=== PATIENT | male | born 1990 | race Caucasian/White ===

== ENCOUNTER 2016-09-27 | Emergency (ER) | payer MEDICARE, OTHER | END 2016-09-27 04:55 | disposition home or self-care (01) | LOC: ER1 | DX: M25.561 Pain in right knee (principal); F17.210 Nicotine dependence, cigarettes, uncomplicated; Z88.2 Allergy status to sulfonamides; Z88.8 Allergy status to other drugs, medicaments and biological substances | CPT/HCPCS: 73564; 99283 ==

== ENCOUNTER 2017-03-25 04:12 | Emergency (ER) | payer MEDICARE, OTHER | END 2017-03-25 05:40 | disposition home or self-care (01) | LOC: ER1 04:12 | DX: K08.89 Other specified disorders of teeth and supporting structures (principal); Z88.2 Allergy status to sulfonamides; Z88.5 Allergy status to narcotic agent; Z88.8 Allergy status to other drugs, medicaments and biological substances | CPT/HCPCS: 96372; 99282; J1885 ==

== ENCOUNTER 2020-08-09 16:53 | Emergency (ER) | payer MEDICARE, OTHER | END 2020-08-09 18:38 | disposition left against medical advice (07) | LOC: ER1 16:53 | DX: R10.9 Unspecified abdominal pain (principal); M54.9 Dorsalgia, unspecified; Z53.21 Procedure and treatment not carried out due to patient leaving prior to being seen by health care provider ==

== ENCOUNTER 2022-01-14 03:10 | Inpatient (IN) | payer MEDICARE, OTHER ==
[~2022-01-14] VITALS: Ht 160 cm; Wt 77.1 kg
[2022-01-14 03:51] LABS: RED BLOOD COUNT 5.34 M/UL (4.20-5.50); WHITE BLOOD COUNT 9.5 K/UL (4.5-11.0)
[2022-01-14 04:15] LABS: BUN/CREATININE RATIO 12 (0-10)
[2022-01-15 06:22] LABS: HEMOGLOBIN 17.3 gm/dl (14.0-17.5); RED BLOOD COUNT 5.43 M/UL (4.20-5.50)
[2022-01-15 06:39] LABS: BUN/CREATININE RATIO 8 (0-10)
[2022-01-16 09:32] LABS: BUN/CREATININE RATIO 10 (0-10)
[2022-01-16] MEDS ORDERED: PHOS-NAK PACKET1 EA PO (18:02)
[2022-01-16] MEDS ORDERED: LEVOFLOXACIN250 MG PO (18:02)
[2022-01-17 06:45] LABS: HEMOGLOBIN 15.6 gm/dl (14.0-17.5); RED BLOOD COUNT 4.98 M/UL (4.20-5.50)
[2022-01-17 06:46] LABS: WHITE BLOOD COUNT 4.9 K/UL (4.5-11.0)
[2022-01-17 07:11] LABS: BUN/CREATININE RATIO 10 (0-10)
[2022-01-17 07:33] LABS: CANDIDA ALBICANS Not Detected (Negative); CANDIDA KRUSEI Not Detected (Negative); CANDIDA TROPICALIS Not Detected (Negative); ESCHERICHIA COLI Not Detected (Negative); HAEMOPHILUS INFLUENZAE Not Detected (Negative); KLEBSIELLA OXYTOCA Not Detected (Negative); KPC-CARBAPENEM-RESISTANCE GENE Not Detected (Negative); PROTEUS Not Detected (Negative); PSEUDOMONAS AERUGINOSA Not Detected (Negative); SERRATIA MARCESANS Not Detected (Negative); STAPHYLOCOCCUS Not Detected (Negative); STAPHYLOCOCCUS AUREUS Not Detected (Negative); STREP AGALACTIAE (GROUP B) Not Detected (Negative); STREP PYOGENES (GROUP A) Not Detected (Negative); STREPTOCOCCUS Not Detected (Negative); vanA/B (VANCOMYCIN RESIST GENE Not Detected (Negative)
[2022-01-17 08:47] LABS: KLEBSIELLA PNEUMONIAE DETECTED (Negative)
[2022-01-18 06:40] LABS: HEMOGLOBIN 14.6 gm/dl (14.0-17.5); RED BLOOD COUNT 4.66 M/UL (4.20-5.50); WHITE BLOOD COUNT 5.5 K/UL (4.5-11.0)
[2022-01-18 07:23] LABS: BUN/CREATININE RATIO 16 (0-10)
[2022-01-18] MEDS ORDERED: INVANZ 1 GM VIAL1 GM IV (16:41)
== END 2022-01-18 17:58 | disposition home or self-care (01) | DRG 872 ==
LOC: ER1 03:10 → MED SURG 4 06:15 → CDU 06:15 → MED SURG 4 09:22
PROVIDERS: Emergency Medicine; Internal Medicine; ADMIT Internal Medicine
DX: A41.89 Other specified sepsis (principal); N39.0 Urinary tract infection, site not specified; E87.2 Acidosis; M54.9 Dorsalgia, unspecified; E83.39 Other disorders of phosphorus metabolism; B96.1 Klebsiella pneumoniae [K. pneumoniae] as the cause of diseases classified elsewhere; I10 Essential (primary) hypertension; F17.200 Nicotine dependence, unspecified, uncomplicated; Q05.9 Spina bifida, unspecified; Z87.440 Personal history of urinary (tract) infections; Z98.41 Cataract extraction status, right eye; Z98.890 Other specified postprocedural states; Z88.2 Allergy status to sulfonamides; Z88.8 Allergy status to other drugs, medicaments and biological substances
CPT/HCPCS: 36415; 71045; 72040; 72072; 80048; 80053; 81001; 83605; 83735; 84100; 85025; 85027; 87040; 87070; 87077; 87086; 87150; 87186; 87205; 96374; 96375; 99285; C1751; J0696; J1335; J1650; J1885; J2405; J2543

== ENCOUNTER → 2022-01-19 | Outpatient (CLI) | payer MEDICARE, OTHER ==
[~2022-01-19] VITALS: Ht 160 cm; Wt 81.6 kg
[~2022-01-19] MED LIST: INVANZ 1 GM VIAL1 GM IV; LEVOFLOXACIN250 MG PO; PHOS-NAK PACKET1 EA PO
== END ==
LOC: OPSV 07:00
DX: N39.0 Urinary tract infection, site not specified (principal); R78.81 Bacteremia
CPT/HCPCS: 96365; J1335

== ENCOUNTER → 2022-01-20 | Outpatient (CLI) | payer MEDICARE, OTHER ==
[~2022-01-20] VITALS: Ht 160 cm; Wt 81.6 kg
== END ==
LOC: OPSV 06:48
DX: N39.0 Urinary tract infection, site not specified (principal)
CPT/HCPCS: 96365; J1335

== ENCOUNTER → 2022-01-21 | Outpatient (CLI) | payer MEDICARE, OTHER ==
[~2022-01-21] VITALS: Ht 160 cm; Wt 81.6 kg
== END ==
LOC: OPSV 07:00
DX: N39.0 Urinary tract infection, site not specified (principal); R78.81 Bacteremia; E83.39 Other disorders of phosphorus metabolism; Q05.9 Spina bifida, unspecified; Z97.0 Presence of artificial eye
CPT/HCPCS: 96365; J1335

== ENCOUNTER → 2022-01-22 | Outpatient (CLI) | payer MEDICARE, OTHER | LOC: OPSV 07:00 → EROP 07:15 | DX: N39.0 Urinary tract infection, site not specified (principal); R78.81 Bacteremia | CPT/HCPCS: 96365; J1335 ==

== ENCOUNTER → 2022-01-24 | Outpatient (CLI) | payer MEDICARE, OTHER ==
[~2022-01-24] VITALS: Ht 160 cm; Wt 81.6 kg
== END ==
LOC: OPSV 06:49
DX: N39.0 Urinary tract infection, site not specified (principal); R78.81 Bacteremia
CPT/HCPCS: 96365; J1335

== ENCOUNTER → 2022-01-25 | Outpatient (CLI) | payer MEDICARE, OTHER ==
[~2022-01-25] VITALS: Ht 160 cm; Wt 81.6 kg
== END ==
LOC: OPSV 06:44
DX: N39.0 Urinary tract infection, site not specified (principal)
CPT/HCPCS: 96365; J1335

== ENCOUNTER → 2022-01-26 | Outpatient (CLI) | payer MEDICARE, OTHER ==
[~2022-01-26] VITALS: Ht 160 cm; Wt 81.6 kg
== END ==
LOC: OPSV 06:51
DX: N39.0 Urinary tract infection, site not specified (principal); R78.81 Bacteremia
CPT/HCPCS: 96365; J1335

== ENCOUNTER → 2022-01-27 | Outpatient (CLI) | payer MEDICARE, OTHER ==
[~2022-01-27] VITALS: Ht 160 cm; Wt 81.6 kg
== END ==
LOC: OPSV 06:57
DX: N39.0 Urinary tract infection, site not specified (principal)
CPT/HCPCS: 96365; J1335

== ENCOUNTER → 2022-01-28 | Outpatient (CLI) | payer MEDICARE, OTHER ==
[~2022-01-28] VITALS: Ht 160 cm; Wt 81.6 kg
== END ==
LOC: OPSV 07:00
DX: N39.0 Urinary tract infection, site not specified (principal); R78.81 Bacteremia
CPT/HCPCS: 96365; J1335